=== PATIENT | female | born 1955 | race Caucasian/White ===

== ENCOUNTER 2018-07-22 09:26 | Inpatient (IN) ==
--- NOTE | 2018-07-21 21:52 | Discharge Summary ---
- NOTES TO OUTPATIENT PROVIDER Notes to Outpatient Provider: Patient with anemia postoperatively. Received 1 unit PRBCs day of discharge. Orders not resulted at time of discharge: Pending orders 07/22/18 01:00 XR post op reverse apex LT [XR] Routine Hemoglobin and Hematocrit [HEME] Routine Date of Encounter: 07/24/18 Time of Encounter: 12:26 - Discharge Diagnosis (1) Rotator cuff tear arthropathy of left shoulder Priority: Primary Status: Chronic (2) Osteoarthritis of left shoulder Priority: Primary Status: Chronic Qualifiers: Osteoarthritis type: unspecified Qualified Code(s): M19.012 - Primary osteoarthritis, left shoulder (3) Status post reverse total arthroplasty of left shoulder Priority: Primary Status: Acute (4) Obesity Priority: Secondary Status: Chronic Qualifiers: Obesity type: unspecified obesity type Obesity classification: adult class 3 (BMI >= 40) Serious obesity comorbidity presence: unspecified whether serious comorbidity present Body mass index: unspecified BMI Qualified Code(s): E66.01 - Morbid (severe) obesity due to excess calories (5) Chronic back pain Priority: Secondary Status: Chronic Qualifiers: Back pain location: back pain in unspecified location Back pain laterality: unspecified Qualified Code(s): M54.9 - Dorsalgia, unspecified; G89.29 - Other chronic pain (6) HTN (hypertension) Priority: Secondary Status: Chronic Qualifiers: Hypertension type: unspecified Qualified Code(s): I10 - Essential (primary) hypertension (7) Diabetes mellitus Priority: Secondary Status: Chronic Qualifiers: Diabetes mellitus type: type 2 Diabetes mellitus ad terminal makeup operator insulin use: without ad terminal makeup operator use Diabetes mellitus complication status: with unspecified complications Qualified Code(s): E11.8 - Type 2 diabetes mellitus with unspecified complications (8) SUZAN (obstructive sleep apnea) Priority: Secondary Status: Chronic (9) Tobacco abuse Priority: Secondary Status: Chronic (10) Hypothyroid Priority: Secondary Status: Chronic Qualifiers: Hypothyroidism type: unspecified Qualified Code(s): E03.9 - Hypothyroidism, unspecified (11) OAB (overactive bladder) Priority: Secondary Status: Chronic (12) Acute blood loss anemia Priority: Secondary Status: Resolved - Hospital Course Hospital course: Ms. Esqueda is a 63 year old female Date of procedure: 07/22/18 Pre-op diagnosis: Left shoulder rotator cuff tear arthropathy Post-op diagnosis: same Procedure: Total Shoulder Replacment Reverse, left Patient progressed well postoperatively. Participated in OT/PT Patient had intermittent hypotension POD#1 - 1/2 liter bolus given with return of appropriate normotension. Patient found to have acute blood loss anemia and received 1 unit PRBC on POD#2 D/C plan: ECF - auth obtained 07/24; Follow total shoulder precautions and rehab protocol. Keep outpatient follow up as scheduled. Short CBC 07/24/18 Range/Units 07:22 Hgb 9.5 L (11.5-15.4) g/dL Hct 30.9 L (35.3-44.9) % BMP 07/24/18 Range/Units 07:22 Sodium 139 (136-145) mEq/L Potassium 4.7 (3.5-5.1) mEq/L Chloride 106 (98-107) mEq/L Carbon Dioxide 25 (23-29) mEq/L BUN 19 (8-23) mg/dL Creatinine 1.17 (0.60-1.20) mg/dL Glucose 159 H (70-105) mg/dL Calcium 8.6 (8.6-10.3) mg/dL Vital Signs Temp Pulse Resp BP Pulse Ox 07/24/18 11:30 98.1 F 72 18 118/77 96 07/24/18 09:50 79 116/78 07/24/18 07:15 97.9 F 81 18 120/69 94 07/24/18 04:26 98.3 F 69 18 100/64 93 07/23/18 23:03 98.3 F 71 18 98/64 92 07/23/18 19:23 97.6 F 73 18 90/56 94 07/23/18 15:58 97.6 F 69 16 156/85 98 07/23/18 15:20 98.1 F 70 15 104/73 95 Intake and Output 07/23/18 07/24/18 07/24/18 23:59 07:59 15:59 Intake Total 200 / 200 120 / 120 Balance 200 / 200 120 / 120 Intake: Oral 200 / 200 120 / 120 Other: Meal Breakfast Percent of Meal Consumed 50% # Voids 1 1 Blood Glucose* 148 158 243 - Time Spent with Patient Total time spent providing and/or coordinating discharge services: - Discharge Medications Home Medications: Docusate Sodium [Colace] 100 mg PO BID 5 Days #10 capsule 07/22/18 [Rx] Ezetimibe 10 mg PO DAILY 07/22/18 [History] Fluticasone Propionate Nasal [Flonase] 1 spray NS BID 07/22/18 [History] Levothyroxine Sodium 50 mcg PO DAILY 07/22/18 [History] Lisinopril 2.5 mg PO DAILY 07/22/18 [History] Metformin HCl 1,000 mg PO BID 07/22/18 [History] OxyCODONE Immed Rel [Roxicodone 5 MG] 5 mg PO Q6HR PRN 7 Days #28 tablet 07/22/18 [Rx] Oxybutynin [Ditropan] 5 mg PO BID 07/22/18 [History] Pramipexole [Mirapex] 1 mg PO 0900,1200 07/22/18 [History] Pramipexole [Mirapex] 2 mg PO HS 07/22/18 [History] Propranolol HCl 40 mg PO TID 07/22/18 [History] glipiZIDE [Glipizide] 10 mg PO DAILY 07/22/18 [History] Allergies/Adverse Reactions: Allergy/AdvReac Type Severity Reaction Status Date / Time No Known Allergies Allergy Verified 07/22/18 11:35 Date of admission: 07/22/18 Primary care physician: PCP LEATHA Discharging clinician: Zuhair Rivers Anticipated date of discharge: 07/24/18 - VTE Documentation of Mechanical Device: Venous foot pump, device - Patient Status Disposition: Transfer SNF Condition: Good Functional capacity at discharge: uses cane/walker Overall status at discharge: patient is progressing back to baseline - Discharge Instructions Follow Up With: NONE,PCP [Primary Care Provider] - - Diet and Activity Activity: as per physical therapy Diet: advance to your usual diet
--- NOTE | 2018-07-22 08:33 | Physician Discharge Referral ---
ExtendedCare Referral Info Transfer To: [facility] Provider in Charge: Dr. Zuhair Rivers - Diagnosis (1) Rotator cuff tear arthropathy of left shoulder Priority: Primary Status: Chronic (2) Osteoarthritis of left shoulder Priority: Primary Status: Chronic (3) Status post reverse total arthroplasty of left shoulder Priority: Primary Status: Acute (4) Obesity Priority: Secondary Status: Chronic (5) Chronic back pain Priority: Secondary Status: Chronic (6) HTN (hypertension) Priority: Secondary Status: Chronic (7) Diabetes mellitus Priority: Secondary Status: Chronic (8) SUZAN (obstructive sleep apnea) Priority: Secondary Status: Chronic (9) Tobacco abuse Priority: Secondary Status: Chronic (10) Hypothyroid Priority: Secondary Status: Chronic (11) OAB (overactive bladder) Priority: Secondary Status: Chronic Expected Duration of Placement: less than 30 days Prognosis: Good Aware of Diagnosis: Patient Aware of Prognosis: Patient - Transfer Medications Home Medications: Docusate Sodium [Colace] 100 mg PO BID 5 Days #10 capsule 07/22/18 [Rx] Ezetimibe 10 mg PO DAILY 07/22/18 [History] Fluticasone Propionate Nasal [Flonase] 1 spray NS BID 07/22/18 [History] Levothyroxine Sodium 50 mcg PO DAILY 07/22/18 [History] Lisinopril 2.5 mg PO DAILY 07/22/18 [History] Metformin HCl 1,000 mg PO BID 07/22/18 [History] OxyCODONE Immed Rel [Roxicodone 5 MG] 5 mg PO Q6HR PRN 7 Days #28 tablet 07/22/18 [Rx] Oxybutynin [Ditropan] 5 mg PO BID 07/22/18 [History] Pramipexole [Mirapex] 1 mg PO 0900,1200 07/22/18 [History] Pramipexole [Mirapex] 2 mg PO HS 07/22/18 [History] Propranolol HCl 40 mg PO TID 07/22/18 [History] glipiZIDE [Glipizide] 10 mg PO DAILY 07/22/18 [History] Allergies/Adverse Reactions: Allergy/AdvReac Type Severity Reaction Status Date / Time No Known Allergies Allergy Verified 07/22/18 11:35 - Respiratory Orders Smoking Cessation: Smoking cessation has been advised. For more information, call the [place] Tobacco Quit Line at 4-407-UMXA-NOW. - Lab Orders Lab Orders: Other (include drug levels w/frequency) (Patient needs PCP appt upon discharge) - Ancillary Orders May use pressure relief devices daily prn, May go on CHRISSY w/family/respon democrat w/meds at nurse discretion PRN, May consult with Dentist, Sub Acute Care Nurse, Health Facilities Surveyor PRN - Mobility Orders Chair, Ambulate - Rehabiliation Orders Rehab Potential: Good Rehab Orders: Evaluation for Physical Therapy, Evaluation for Occupational Therapy Other: PT/OT per protocol. NWB to affected upper extremity. Follow Shoulder Precautions x 6 weeks. Stay in brace during activity and at night. Remove brace during exercises. ICE and elevate extremity frequently throughout the day. - Treatments Skin tear care topically daily PRN per policy List/Other: Opsite placed. Keep dressing intact until first follow up appointment. If greater than 50% saturated, notify office, remove dressing and place appropriate dressing back in place. Leave Zipline intact. Opsite dressing is water resistant, not water-proof. OK to shower, but do not get dressing wet. - Diet Orders Regular CERTIFICATION: I certify that the transfer of the above named patient to an Extended Care Facility is necessary for the continuing treatment of the diagnosis listed. The above information is true and accurate reflection of patient's current condition. Confidential - Redisclosure prohibited without a patient's written consent.
[2018-07-22] MEDS ORDERED: CeFAZolin Syr 3,000MG/30 ML 3,000 MG/30 ML SYRINGE IVPB ONE (09:44)
[2018-07-22] MEDS ORDERED: Albuterol 2.5 MG/3 ML NEBULIZER IH ONE (09:44)
[2018-07-22] MEDS ORDERED: Ringers Solution, Lactated 1,000 ML IVC SCH (09:45)
--- NOTE | 2018-07-22 10:08 | History & Physical Report ---
Date of Encounter: 07/22/18 Time of Encounter: 10:07 24 Hour HP Update - Instructions Instructions: If the History and Physical is less than 30 days old and was completed prior to A.M. admission and or procedure and has NOT been updated on calendar day of procedure please complete this update prior to performing procedure. - Update Patient reports changes in Medical Condition: No Changes in examination, assessment, or condition: No Preop tests/diagnostics Reviewed: Yes Surgery Remains Indicated: Yes Consent for Planned Operative Procedure(s) Verified: Yes - Pre-Operative Checklist Preoperative Checklist Indicated: No Prophylactic Antibiotic Ordered: Yes Is VTE Prophylaxis Indicated?: Yes
--- NOTE | 2018-07-22 10:13 | Anesthesia Evaluation PreOp ---
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: Denies Any Significant HX Other Medical History: Renal (CKD3), Diabetes Type II, Thyroid, Other (MORBID OBESITY, ANEMIA) Anesthesia History: No Prior Anesthetic Complications, Past Anesthesia Medications and Allergies Allergy/AdvReac Type Severity Reaction Status Date / Time No Known Allergies Allergy Verified 07/15/18 12:16 - Meds/Allergy Pre-op Review Medications Reviewed: Yes Allergies Reviewed: Yes Beta Blockers on Current Med List: No Anesthesia Exam Vital Signs/O2 Sat/Glucose, Most Recent Temp Pulse Resp BP Pulse Ox 97.5 F L 67 18 127/80 97 07/22/18 09:49 07/22/18 09:49 07/22/18 09:49 07/22/18 09:49 07/22/18 09:49 Blood Glucose* 163 Weight: 137 KG - BMI 46 - HEENT Mallampati: II Teeth: Edentulous Denture Type: Upper: Complete Oral Opening: Greater than 3 - Cardiac Rhythm: Regular - Pulmonary Breath Sounds: bilateral Clear Respiratory Effort: Symmetrical Anesthesia Assess/Plan ASA Score: 4 Anesthetic Plan: General, Regional Nerve Block (FOR POST OPERATIVE PAIN CONTROL) Regional Nerve Block Plan: Supraclavicular, Supracervical Plexus Monitoring Plan: Standard Monitors Recovery Plan: PACU
[2018-07-22] MEDS ORDERED: Lidocaine -MPF 2% 2 ML VIAL ONE (10:32)
[2018-07-22] MEDS ORDERED: *HR* Succinylcholine 200 MG/10 ML VIAL IVP ONE (10:32)
[2018-07-22] MEDS ORDERED: Dexamethasone 4 MG/ML VIAL ONE (10:32)
[2018-07-22] MEDS ORDERED: Ondansetron 4 MG/2 ML VIAL ONE (10:32)
[2018-07-22] MEDS ORDERED: *HR* FentaNYL (PF) 100 MCG/2 ML VIAL ONE (10:33)
[2018-07-22] MEDS ORDERED: *HR* Propofol 200 MG/20 ML VIAL IVP ONE (10:33)
[2018-07-22] MEDS ORDERED: *HR* Midazolam HCl 2 MG/2 ML VIAL ONE (10:33)
[2018-07-22] MEDS ORDERED: Lidocaine -MPF 4% 5 ML AMPUL ONE (10:39)
[2018-07-22] MEDS ORDERED: *HR* OxyCODONE Immed Rel 5 MG TABLET PO PRN (11:03)
[2018-07-22] MEDS ORDERED: Ipratropium/Albuterol Neb 3 ML IH PRN (11:03)
[2018-07-22] MEDS ORDERED: Acetaminophen IV 1,000 MG/100 ML INFUS..BTL IVPB ONE (11:03)
[2018-07-22] MEDS ORDERED: *HR* HYDROmorphone (PF) 1 MG/ML SYRINGE IVP PRN (11:03)
[2018-07-22] MEDS ORDERED: ROPIVACAINE HCL/PF 0.5% 30 ML VIAL ONE (11:10)
[2018-07-22] MEDS ORDERED: Bupivacaine/Clonidine Syringe 1 EACH SYRINGE ONE (11:11)
[2018-07-22] MEDS ORDERED: Ethanol\\Acetic Acid\\Na Ace\\Ben 1,000 ML IRRIG.SOLN IR ONE (11:21)
--- NOTE | 2018-07-22 11:46 | Anesthesia Procedures ---
Date of Encounter: 07/22/18 Time of Encounter: 11:30 Procedures: Anesthesia - Nerve Block Procedure Date: 07/22/18 Time: 11:30 Allergies/Adv Reactions: No Known Allergies Allergy (Verified 07/22/18 11:35) Pre-op Diagnosis: left shoulder arthritis Surgical Procedure: left TSA Checklist: Correct Patient Identifier, Correct procedure, History checked Correct side: Left Blood Thinner: No Monitor Applied: EKG, BP, Pulse Oximetry Supplemental Oxygen via Nasal Cannula (L/min): 2 Sedation: Versed (mg): 2 Sedation: Fentanyl (mcg): 100 Indication: Post Op Analgesia Pre-op Neuro Deficits: No Block Type: Supraclavicular, Other (DCP, ICB) Catheter placed: No Sterile Technique: Yes Ultrasound used: Yes Anatomy identified: Yes Visual spread of Local: Yes Nerve Stimulator Range: >0.4 - 0.6 mA Blood on Needle Aspiration: No Smooth Injection of Local: Yes Pain with Injection of Local: No Prep: Chlorhexadine Needle: 22 x 50 mm Stimuplex Local: 0.25% Bupivicaine w/Clonidine 20 mcg/cc, Ropivacaine (and decadron) Volume (cc): 50 Number of Attempts: 1 Complications: None/effective block Vitals: see nurses vitals
[2018-07-22] MEDS ORDERED: *HR* PHENYLEPHRINE 1,000 MCG/10 ML SYRINGE IVP ONE (12:02)
[2018-07-22] MEDS ORDERED: EPHEDrine 50 MG/ML VIAL ONE (12:10)
--- NOTE | 2018-07-22 12:30 | Orthopedic Operative Note ---
Date of procedure: 07/22/18 Pre-op diagnosis: Left shoulder rotator cuff tear arthropathy Post-op diagnosis: same Procedure: Procedure: Total Shoulder Replacment Reverse, left Estimated blood loss: 100 cc Hardware: Metal and polyethylene replacement: Arthrex 24, +2 , 25 mm screw glenoid baseplate, 4 locking 5.5 screw, 42+4 glenosphere, 10 apex humeral stem, poly insert 6 Exam Under anesthesia: Full motion no instability Procedural Notes: Irreparable tear rotator cuff grade 4 arthritic changes humeral head glenoid socket Operative procedure: The patient was brought to the operating room and placed on the operating room table. After general anesthesia was administered the operative shoulder was examined. Findings were noted. The patient was placed in the modified beachchair position. All pressure points were padded appropriately. And the head was stabilized in the neutral position. The operative extremity was prepped and draped in the sterile surgical fashion. The patient received IV antibiotics prior to skin incision. A standard deltopectoral approach was made to the operative shoulder. Incision was made to the skin and subcutaneous tissue,hemo stasis was obtained with Bovie cautery. Using careful blunt dissection the cephalic vein was identified and mobilized medially. The deltopectoral interval was developed and the clavipectoral fascia was incised. The subscap was irreparable. The humerus was dislocated patient noted to have irreparable tear supraspinatus tendon, and the humeral cut was made along the anatomic neck. Anterior and posterior Bankart retractors were placed to expose the glenoid. The glenoid guide was seated and the centering hole was made. It was reamed with the appropriate reamer. The 24, +2, 25 mm screw baseplate was seated and secured with 4 locking 2 5.5 screw. The baseplate was irrigated and dried and the 42+4 Glenosphere was seated and secured with the [place] taper. The [place] taper was tested and found to be secure, glenosphere fixation was secondarily secured with the central screw. The humerus was redislocated and prepared with the diaphyseal reamers, followed by a broaching process up to the appropriate size 10 apex in the patient's anatomic version. The metaphyseal reamer was then utilized. Trial reduction found the shoulder to be relocatable. Trial components were removed and 10 apex stem was impacted in place in the patient's anatomic version. Trial reduction found the shoulder to be relocatable and stable with the appropriate X May Trial component was removed and the real implant was seated and secured the shoulder was reduced. The shoulder had excellent motion and excellent stability and no evidence of dislocation. The deep tissue was irrigated with pulse irrigation. The PA close the shoulder. The deltopectoral interval was closed with a running #1 PDS suture, subcutaneous tissue was irrigated and closed with 0 PDS suture, the skin was closed with Dermabond. The patient was placed in a sterile dressing, abduction brace and extubated. The patient was then transferred to the recovery room in stable condition. Anesthesia: LUBNA Surgeon: Zuhair Rivers Was there an staff physical therapy assistant present: Yes Bowling Pin Refinisher: Erum Mcgee Estimated blood loss (cc): 100 Condition: stable Disposition: PACU
[2018-07-22 13:32] LABS: Hematocrit 30.2 % (35.3-44.9); Hemoglobin 9.3 g/dL (11.5-15.4)
[2018-07-22] MEDS ORDERED: *HR* Dextrose 50 % in Water (Syg) 50 ML SYRINGE IVP PRN (14:10)
[2018-07-22] MEDS ORDERED: traMADol 50 MG TABLET PO PRN (14:10)
[2018-07-22] MEDS ORDERED: D5% in Water 1,000 ML IVC PRN (14:10)
[2018-07-22] MEDS ORDERED: Dextrose Gel 15 GM/37.5 ML TUBE PO PRN ×2 (14:10)
[2018-07-22] MEDS ORDERED: MOM Conc 10 ML UD.LIQ PO PRN (14:10)
[2018-07-22] MEDS ORDERED: Sennosides 8.6 MG TABLET PO PRN (14:10)
[2018-07-22] MEDS ORDERED: Naloxone 0.4 MG/ML INJ IVP PRN (14:10)
[2018-07-22] MEDS ORDERED: Temazepam 15 MG CAPSULE PO PRN (14:10)
[2018-07-22] MEDS ORDERED: Ondansetron 4 MG/2 ML VIAL IVP PRN (14:10)
[2018-07-22] MEDS ORDERED: CeFAZolin Syr 3,000MG/30 ML 3,000 MG/30 ML SYRINGE IVPB SCH (16:00)
--- NOTE | 2018-07-22 16:35 | Anesthesia Evaluation Post Op ---
Date of Encounter: 07/22/18 Time of Encounter: 16:20 - Discharge PostOp Status: Transfer Patient to floor (Patient's vital signs have been reviewed. Patient is stable postoperatively and has adequately recovered from anesthesia. Patient is determined to have stable airway patency and respiratory function including respiratory rate and oxygen saturation. Patient has a stable heart rate, blood pressure and adequate hydration. Patients mental status is acceptable. Patients temperature is appropriate. Pain and nausea are adequately controlled.)
[2018-07-22] MEDS: *HR* Metformin 500 MG TABLET PO SCH (17:54)
[2018-07-22] MEDS: ceFAZolin 3,000 MG in 0.9 % Sodium Chloride 100 ML IVPB SCH (17:54)
[2018-07-22] MEDS: Insulin LISPRO 300 UNITS/3 ML VIAL SQ SCH ×2 (17:56→21:36)
[2018-07-22] MEDS: *HR* Enoxaparin 30 MG/0.3 ML SYRINGE SQ SCH (17:56)
[2018-07-22] MEDS ORDERED: *HR* Enoxaparin 30 MG/0.3 ML SYRINGE SQ SCH (18:00)
[2018-07-22] MEDS: Ringers Solution, Lactated 1,000 ML IVC SCH (21:41)
[2018-07-23] MEDS: ceFAZolin 3,000 MG in 0.9 % Sodium Chloride 100 ML IVPB SCH (00:47)
[2018-07-23] MEDS: Fluticasone Propionate Nasal 50 MCG/SPRAY BOTTLE NS SCH ×3 (00:48→20:21)
[2018-07-23] MEDS: *HR* OxyCODONE/APAP 5/325 TABLET PO PRN ×2 (01:19→15:28)
[2018-07-23] MEDS: *HR* Enoxaparin 30 MG/0.3 ML SYRINGE SQ SCH ×2 (05:27→16:57)
--- NOTE | 2018-07-23 06:52 | Orthopedics Progress Note ---
Date of Encounter: 07/23/18 Time of Encounter: 06:52 Subjective Interval history: Patient was seen this morning doing well without complaints. Afebrile vital signs stable. Operative extremity: Neurovascularly intact Dressing clean dry and intact Calves nontender Assessment and plan: Continue with postoperative care Hematocrit 30 Objective Vital signs: Vital Signs Temp Pulse Resp BP Pulse Ox 07/23/18 03:59 98.1 F 63 17 132/70 95 07/22/18 23:13 97.9 F 60 18 138/79 95 07/22/18 19:36 98.1 F 64 18 150/88 96 07/22/18 16:20 97.7 F 78 18 112/71 94 07/22/18 15:15 97.5 F L 73 18 123/78 96 07/22/18 14:45 97.5 F L 79 18 100/61 95 07/22/18 14:10 97.6 F 70 19 127/77 96 07/22/18 13:35 76 18 127/85 96 07/22/18 13:25 79 18 117/74 97 07/22/18 13:15 97.2 F L 76 18 120/87 97 07/22/18 13:05 72 18 92/68 98 07/22/18 12:55 88 18 116/71 94 07/22/18 12:45 97.4 F L 98 16 104/75 100 07/22/18 11:36 64 16 103/74 97 07/22/18 11:11 68 16 117/80 94 07/22/18 10:19 18 127/80 97 07/22/18 09:49 97.5 F L 67 18 127/80 97 Intake and Output 07/22/18 07/22/18 07/23/18 15:59 23:59 07:59 Intake Total 300 / 300 250 / 250 Output Total 100 / 100 Balance -100 / -100 300 / 300 250 / 250 Intake: IV Fluids 100 / 100 Ancef 3,000 MG In 0.9 % Sodium 100 / 100 Chloride 100 ML @ 200 mls/hr IVPB Q8HR BRAEDEN Rx#:[id number] Oral 200 / 200 250 / 250 Output: Urine 0 / 0 Estimated Blood Loss 100 / 100 Other: # Voids 1 1 1 Weight 137.438 kg 137.5 kg Blood Glucose* 125 288 Patient Weight 07/23/18 23:59 Weight 137.5 kg - Labs CBC & BMP: 07/22/18 12:49 Labs: Abnormal lab results Hgb 9.3 g/dL (11.5-15.4) L 07/22/18 12:49 Hct 30.2 % (35.3-44.9) L 07/22/18 12:49 POC Glucose 163 mg/dL (70-99) H 07/22/18 09:46 Consult Discharge Plan - Plan Referrals: NONE,PCP [Primary Care Provider] -
[2018-07-23] MEDS: Ringers Solution, Lactated 1,000 ML IVC SCH (07:59)
[2018-07-23] MEDS: Insulin LISPRO 300 UNITS/3 ML VIAL SQ SCH ×4 (08:02→20:19)
[2018-07-23] MEDS: *HR* GlipiZIDE 5 MG TABLET PO SCH (08:18)
[2018-07-23] MEDS: *HR* Metformin 500 MG TABLET PO SCH ×2 (08:18→16:57)
[2018-07-23] MEDS: Ezetimibe [Ezetimibe] 10 MG PO SCH (08:19)
[2018-07-23 08:28] LABS: Hematocrit 28.4 % (35.3-44.9); Hemoglobin 8.7 g/dL (11.5-15.4)
[2018-07-23 08:52] LABS: BUN/Creatinine Ratio 16 (6-26); Blood Urea Nitrogen 17 mg/dL (8-23); Calcium 8.4 mg/dL (8.6-10.3); Carbon Dioxide 22 mEq/L (23-29); Chloride 108 mEq/L (98-107); Glucose 132 mg/dL (70-105); Osmolality,Calculated 287 (280-300); Potassium 4.7 mEq/L (3.5-5.1); Sodium 137 mEq/L (136-145); eGFR For Non-African Americans 54 (> 60)
[2018-07-23] MEDS ORDERED: 0.9 % Sodium Chloride 500 ML IVC ONE (12:50)
--- NOTE | 2018-07-23 12:50 | Event Note ---
Date of Encounter: 07/23/18 Time of Encounter: 12:50 POD#1 Date of procedure: 07/22/18 Pre-op diagnosis: Left shoulder rotator cuff tear arthropathy Post-op diagnosis: same Procedure: Total Shoulder Replacment Reverse, left Patient seen at bedside. Patient family at bedside. A&Ox3 Dressing and incision c/d/i Zipline intact No calf tenderness, erythema, or warmth. Neurovascularly intact b/l UE - sling in place Labwork and medications reviewed. Pain control: Adequate Participating in PT. All questions and concerns addressed. Educated on use of incentive spirometer, ambulation, and hydration. Patient educated on post-operative restrictions and care. Addressed: intermittent hypotension and decreased GFR - 1/2 liter bolus given with appropriate normotension. will repeat BMP tomorrow 07/24 D/C plan: ECF - awaiting auth
[2018-07-23] MEDS: *HR* OxyCODONE Immed Rel 5 MG TABLET PO PRN ×2 (17:08→23:33)
[2018-07-24] MEDS: *HR* Enoxaparin 30 MG/0.3 ML SYRINGE SQ SCH ×2 (06:35→17:28)
[2018-07-24] MEDS ORDERED: Furosemide 20 MG/2 ML VIAL IVP ONE ×2 (06:57→17:15)
[2018-07-24] MEDS: *HR* OxyCODONE Immed Rel 5 MG TABLET PO PRN ×2 (07:42→20:31)
[2018-07-24 08:06] LABS: Hematocrit 30.9 % (35.3-44.9); Hemoglobin 9.5 g/dL (11.5-15.4)
[2018-07-24 08:07] LABS: Calcium 8.6 mg/dL (8.6-10.3); Potassium 4.7 mEq/L (3.5-5.1)
--- NOTE | 2018-07-24 08:20 | Orthopedics Progress Note ---
Date of Encounter: 07/24/18 Time of Encounter: 08:19 - Assessment and Plan (1) Acute blood loss anemia Current Visit: Yes Status: Acute Subjective Interval history: Patient was seen this morning doing well without complaints. Afebrile vital signs stable. Operative extremity: Neurovascularly intact Dressing clean dry and intact Calves nontender Assessment and plan: Continue with postoperative care Hemoglobin 8.7 transfuse 2 units Objective Vital signs: Vital Signs Temp Pulse Resp BP Pulse Ox 07/24/18 07:15 97.9 F 81 18 120/69 94 07/24/18 04:26 98.3 F 69 18 100/64 93 07/23/18 23:03 98.3 F 71 18 98/64 92 07/23/18 19:23 97.6 F 73 18 90/56 94 07/23/18 15:58 97.6 F 69 16 156/85 98 07/23/18 15:20 98.1 F 70 15 104/73 95 07/23/18 12:05 97.6 F 68 17 99/63 99 07/23/18 08:24 95 Intake and Output 07/23/18 07/24/18 07/24/18 23:59 07:59 15:59 Intake Total 200 / 200 Balance 200 / 200 Intake: Oral 200 / 200 Other: # Voids 1 1 Blood Glucose* 148 158 - Labs CBC & BMP: 07/23/18 07:58 07/24/18 07:22 Labs: Abnormal lab results Hgb 8.7 g/dL (11.5-15.4) L 07/23/18 07:58 Hct 28.4 % (35.3-44.9) L 07/23/18 07:58 Est GFR ( Amer) 57 (> 60) L 07/24/18 07:22 Est GFR (Non-Af Amer) 47 (> 60) L 07/24/18 07:22 Glucose 159 mg/dL (70-105) H 07/24/18 07:22 POC Glucose 158 mg/dL (70-99) H 07/24/18 07:31 Consult Discharge Plan - Plan Referrals: NONE,PCP [Primary Care Provider] -
[2018-07-24] MEDS: *HR* Metformin 500 MG TABLET PO SCH ×2 (10:01→17:12)
[2018-07-24] MEDS: *HR* GlipiZIDE 5 MG TABLET PO SCH (10:01)
[2018-07-24] MEDS: Fluticasone Propionate Nasal 50 MCG/SPRAY BOTTLE NS SCH ×2 (10:01→20:32)
[2018-07-24] MEDS: Insulin LISPRO 300 UNITS/3 ML VIAL SQ SCH ×4 (10:10→20:19)
[2018-07-24] MEDS: Ezetimibe [Ezetimibe] 10 MG PO SCH (10:18)
[2018-07-24] MEDS ORDERED: 0.9 % Sodium Chloride 250 ML ONE (12:35)
[2018-07-24 18:17] LABS: Hematocrit 33.9 % (35.3-44.9); Hemoglobin 10.5 g/dL (11.5-15.4)
[2018-07-24 18:37] LABS: Calcium 8.6 mg/dL (8.6-10.3); Potassium 4.4 mEq/L (3.5-5.1)
[2018-07-24 21:05] VITALS: BP 106/70
== END 2018-07-24 20:59 | DRG 483 ==
LOC: SAMDAY 09:26 → 3NENU 14:04
PROVIDERS: ADMIT Orthopaedic Surgery; ATTEND Orthopaedic Surgery